=== PATIENT | male | born 1965 | race African-American/Black ===

== ENCOUNTER 2020-11-16 14:16 | Emergency (ER) | payer SELFPAY ==
[~2020-11-16] VITALS: Ht 185.4 cm; Wt 100.0 kg
[2020-11-16 14:17] VITALS: BP 136/84
== END 2020-11-16 14:34 | disposition left against medical advice (07) ==
LOC: ER 14:21
DX: Z53.21 Procedure and treatment not carried out due to patient leaving prior to being seen by health care provider (principal)